=== PATIENT | male | born 1955 | race Caucasian/White ===

== ENCOUNTER 2025-04-26 14:33 | Emergency (ER) | payer MEDICARE, BC ==
[~2025-04-26] VITALS: Ht 177.8 cm; Wt 95.3 kg
[2025-04-26 15:25] VITALS: TEMP 97.7
[2025-04-26] MEDS ORDERED: KETOROLAC TROMETHAMINE INJ 30 MG/ML VIAL ONE (15:52)
[2025-04-26] MEDS ORDERED: MORPHINE SULFATE INJ 4 MG/ML DISP.SYRIN ONE (15:52)
[2025-04-26] MEDS ORDERED: ONDANSETRON HCL/PF 4 MG/2 ML VIAL ONE (15:52)
[2025-04-26] MEDS: IV NS 0.9% 1,000 ML BAG IV ONE (15:55)
[2025-04-26] MEDS: ONDANSETRON HCL/PF 4 MG/2 ML VIAL IVP ONE (15:56)
[2025-04-26] MEDS: KETOROLAC TROMETHAMINE 15 MG/ML VIAL IV ONE ×2 (16:00→18:04)
[2025-04-26] MEDS: MORPHINE SULFATE INJ 2 MG/ML DISP.SYRIN IV ONE (16:05)
[2025-04-26 16:32] LABS: PLATELET COUNT (AUTO) 192 K/uL (150-450); RED BLOOD CELL COUNT(AUTO) 5.31 MIL/uL (4.5-6.0); RED CELL DISTRIBUTION WIDTH 14.1 % (11.5-15.0); WHITE BLOOD COUNT (AUTO) 10.6 K/uL (4.3-11.0)
[2025-04-26 16:50] LABS: CALCIUM, SERUM 9.2 mg/dL (8.5-10.1); CREATININE 1.1 mg/dL (0.6-1.3); SODIUM SERUM 140 mmol/L (136-145); UREA NITROGEN, BLOOD 13 mg/dL (7-18)
[2025-04-26 17:00] LABS: ASPARTATE AMINOTRANSFERASE 17 U/L (15-37); TOTAL PROTEIN, SERUM 7.2 g/dL (6.4-8.2)
[2025-04-26] MEDS ORDERED: NAPR-1164 PO (17:52)
[2025-04-26] MEDS ORDERED: NALO4SPR BNOSTRILS (17:52)
[2025-04-26] MEDS ORDERED: TAMS-12 PO (17:52)
[2025-04-26] MEDS ORDERED: HYDR-3976 PO (17:52)
[2025-04-26] MEDS ORDERED: KETOROLAC TROMETHAMINE 15 MG/ML VIAL ONE (17:57)
[2025-04-26 18:21] VITALS: BP 123/69; O2SAT 98
== END 2025-04-26 18:21 | disposition home or self-care (01) ==
LOC: ER 14:43
DX: N13.2 Hydronephrosis with renal and ureteral calculous obstruction (principal); I11.9 Hypertensive heart disease without heart failure; Z88.0 Allergy status to penicillin
CPT/HCPCS: 99285; 74176; 96374; 96375; 96361; 96376; 85025; 80048; 83690; 80076; 36415; J1885 ×2; J2270; J2405; J7030; A6403